=== PATIENT | female | born 2000 | race Two or more races ===

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

== ENCOUNTER 2018-03-19 22:05 | Emergency (ER) | payer SELFPAY ==
[2018-03-19 22:12] VITALS: BP 112/64
--- NOTE | 2018-03-19 22:56 | ER Document Report ---
ED General - General Chief Complaint: Vag Bleeding, +preg <12wks Stated Complaint: VAGINAL BLEEDING Time Seen by Provider: 03/19/18 22:53 TRAVEL OUTSIDE OF THE [place] IN LAST 30 DAYS: No - HPI Notes: Patient is a 17-year-old female approximately 6 weeks with no other significant past medical history who presents to the ED complaining of intermittent pelvic cramping, vaginal bleeding that began last evening. Patient states that she is eating and drinking without any difficulties. She is urinating normally and having normal bowel movements. Denies any drug allergies, smoking, IV drug use, alcohol involvement. No other concerns or complaints at this time. The pain does not radiate. Denies any headache, fever , neck pain, URI, sore throat, chest pain, palpitations, syncope, cough, shortness of breath, wheeze, dyspnea, nausea/vomiting/diarrhea, urinary retention, dysuria, hematuria, or rash. - Related Data Allergies/Adverse Reactions: No Known Allergies Allergy (Unverified 08/30/16 12:58) Past Medical History - Social History Smoking Status: Never Smoker Family History: None, Reviewed & Not Pertinent Renal/ Medical History: Denies: Hx Peritoneal Dialysis - Immunizations Hx Diphtheria, Pertussis, Tetanus Vaccination: Yes Review of Systems - Review of Systems -: Yes All other systems reviewed and negative Physical Exam - Vital signs Vitals: Temp Pulse Resp BP Pulse Ox 98.3 F 71 16 112/64 100 03/19/18 22:11 03/19/18 22:11 03/19/18 22:11 03/19/18 22:11 03/19/18 22:11 - Notes Notes: PHYSICAL EXAMINATION: GENERAL: Well-appearing, well-nourished and in no acute distress. LUNGS: Breath sounds clear to auscultation bilaterally and equal. No wheezes rales or rhonchi. HEART: Regular rate and rhythm without murmurs, rubs, gallops. ABDOMEN: Soft, nondistended abdomen. No guarding, no rebound. No masses appreciated. Normal bowel sounds present. No CVA tenderness bilaterally. + mild lower pelvic tenderness b/l. : deferred, pt declined Musculoskeletal: FROM to passive/active. Strength 5+/5. Extremities: No cyanosis, clubbing, or edema b/l. Peripheral pulses 2+. Capillary refill less than 3 seconds. NEUROLOGICAL: Normal speech, normal gait. PSYCH: Normal mood, normal affect. SKIN: Warm, Dry, normal turgor, no rashes or lesions noted. Course - Re-evaluation Re-evalutation: 03/20/18 01:53 Patient is an afebrile, well-hydrated, 17-year-old female who presents to the ED with bleeding in early and intrauterine . Vitals are acceptable without any significant tachycardia, tachypnea, or hypoxia. PE is otherwise unremarkable. CBC, CMP, lipase, rhogam (A+) unremarkable for acute pathology. HCG at 37,800. TVUS shows evidence of the gest sac w/o sac measuring approx 6wk 3 day. + suspected subchorionic hemorrhage noted. UA unremarkable aside from blood. Patient is nontoxic-appearing is tolerating p.o. without any difficulties. No other labs or imaging warranted at this time based on H&P. Low suspicion/risk for acute appendicitis, bowel obstruction, acute cholecystitis, acute cholangitis, perforated diverticulitis, incarcerated hernia, pancreatitis, perforated ulcer, peritonitis, sepsis, pelvic inflammatory disease, ectopic , tubo-ovarian abscess, ovarian torsion, or other systemic emergent condition at this time. Patient is aware that her condition can change from initial presentation and she needs to monitor symptoms closely and seek medical attention if any acute changes. Recheck HCG in 2-3 days, may need repeat US next week as well. Conservative measures otherwise for symptoms. Recheck with your PCM/OBGYN in 2-3 days. Return to the ED with any worsening/concerning symptoms otherwise as reviewed in discharge. Patient is in agreement. - Vital Signs Vital signs: Temp Pulse Resp BP Pulse Ox 98.3 F 71 16 112/64 100 03/19/18 22:11 03/19/18 22:11 03/19/18 22:11 03/19/18 22:11 03/19/18 22:11 - Laboratory Result Diagrams: 03/19/18 23:45 03/19/18 23:45 Laboratory results interpreted by me: 03/19/18 03/19/18 03/19/18 23:45 23:45 23:47 Monocytes % 14.9 H Carbon Dioxide 21 L BUN 3 L Creatinine 0.44 L Alkaline Phosphatase 46 L Beta HCG, Quant 02310.00 H Urine Ketones 20 H Urine Blood MODERATE H Urine Urobilinogen 2.0 H Ur Leukocyte Esterase TRACE H Discharge - Discharge Clinical Impression: Bleeding in early Subchorionic bleed Qualifiers: Fetus number: single or unspecified fetus Trimester: first trimester Qualified Code(s): O41.8X10 - Other specified disorders of amniotic fluid and membranes, first trimester, not applicable or unspecified; O46.8X1 - Other antepartum hemorrhage, first trimester; O46.8X1 - Other antepartum hemorrhage, first trimester Condition: Stable Disposition: HOME, SELF-CARE Instructions: Bleeding During Early ([facility]) Additional Instructions: Maintain fluid intake Proper hygenic technique Keep the skin clean Tylenol as needed Return immediately if symptoms worsen F/u with your PCM/OBGYN in 2-3 days for a recheck Return to the ED with any development of [place]/fever, trouble with vision, eye redness, worsening pain, urethral discharge, urinary retention, blood in the urine, flank pain, abdominal pain, n/v, Chest Pain, shortness of breath, joint pains, trouble breathing, or any other worsening/concerning symptoms as needed otherwise. Prescriptions: Ondansetron [Zofran Odt 4 mg Tablet] 1 - 2 tab PO Q4H PRN #15 tab.rapdis PRN Reason: For Nausea/Vomiting Referrals: [facility] [Provider Group] - 03/22/18
[2018-03-19] MEDS ORDERED: ACETAMINOPHEN 325 MG TABLET PO ONE (22:58)
[2018-03-19 23:59] LABS: ABSOLUTE BASOPHILS # (AUTO) 0.1 10^3/uL (0.0-0.2); ABSOLUTE EOSINOPHILS # (AUTO) 0.1 10^3/uL (0.0-0.6); ABSOLUTE LYMPHOCYTES (AUTO) 1.9 10^3/uL (0.5-4.7); ABSOLUTE MONOCYTES (AUTO) 0.7 10^3/uL (0.1-1.4); BASOPHILS % (AUTO) 1.1 % (0-2); EOSINOPHILS % (AUTO) 2.9 % (0-6); HEMATOCRIT 39.9 % (36.0-47.0); HEMOGLOBIN 13.2 g/dL (12.0-15.5); LYMPHOCYTES % (AUTO) 38.9 % (13-45); MEAN CORPUSCULAR HEMOGLOBIN 29.8 pg (27.0-33.4); MEAN CORPUSCULAR HGB CONC 33.1 g/dL (32.0-36.0); MEAN CORPUSCULAR VOLUME 90 fl (80-97); MONOCYTES % (AUTO) 14.9 % (3-13); PLATELET COUNT 247 10^3/uL (150-450); RED BLOOD COUNT 4.44 10^6/uL (3.72-5.28); RED CELL DISTRIBUTION WIDTH 12.9 % (11.5-14.0); SEGMENTED NEUTROPHILS % (AUTO) 42.2 % (42-78); TOTAL CELLS COUNTED % (AUTO) 100 %; WHITE BLOOD COUNT 4.8 10^3/uL (4.0-10.5)
[2018-03-20 00:20] LABS: ALANINE AMINOTRANSFERASE 27 U/L (5-35); ALBUMIN 4.2 g/dL (3.7-5.6); ALKALINE PHOSPHATASE 46 U/L (50-135); ANION GAP 12 (5-19); ASPARTATE AMINO TRANSFERASE 17 U/L (5-30); BILIRUBIN,DIRECT 0.2 mg/dL (0.0-0.4); BILIRUBIN,TOTAL 0.7 mg/dL (0.2-1.3); BLOOD UREA NITROGEN 3 mg/dL (7-20); CALCIUM 9.7 mg/dL (8.4-10.2); CARBON DIOXIDE 21 mmol/L (22-30); CHLORIDE 105 mmol/L (98-107); GLUCOSE 92 mg/dL (75-110); POTASSIUM 4.1 mmol/L (3.6-5.0); SODIUM 137.6 mmol/L (137-145)
[2018-03-20 00:25] LABS: APPEARANCE,URINE SLIGHTLY-CLOUDY; BILIRUBIN,URINE NEGATIVE (NEGATIVE); COLOR,URINE YELLOW; GLUCOSE, URINE NEGATIVE (NEGATIVE); KETONES,URINE 20 mg/dL (NEGATIVE); LEUKOCYTE ESTERASE,URINE TRACE (NEGATIVE); NITRITE,URINE NEGATIVE (NEGATIVE); PROTEIN,URINE NEGATIVE (NEGATIVE); URINE SPECIFIC GRAVITY 1.016
--- NOTE | 2018-03-20 01:48 | RADIOLOGY REPORT (SQ) ---
EXAM DESCRIPTION: US TRANSVAGINAL COMPLETED DATE/TME: 03/19/2018 22:42 CLINICAL HISTORY: 17 years, Female, , bleeding LMP: 02/01/2018 COMPARISON: None. TECHNIQUE: Complete first trimester obstetrical ultrasound with transvaginal imaging. FINDINGS: The cervix measures 2.4 cm and is closed. The uterus measures 8.7 x 4.9 x 4.5 cm. Within the endometrial canal there is a gestational sac. Yolk sac is identified. A pole is identified with a crown-rump length of 0.61 cm compatible with an estimated gestational age of 6 weeks, 3 days. heart rate of 113 bpm. The gestational sac has a qualitatively normal configuration. Anterior to the gestational sac there is a hypoechoic region measuring 5.1 x 2.0 x 3.4 cm likely representing a subchorionic hemorrhage. The right ovary measures 1.9 x 3.8 x 2.3 cm. Likely right ovarian corpus luteal cyst measuring 1.8 cm. This is almost certainly benign and no imaging follow-up required. The left ovary measures 2.0 x 3.4 x 1.5 cm. Limited color and spectral Doppler imaging images flow within the ovaries bilaterally. No large adnexal masses. No free pelvic fluid. IMPRESSION: 1. Single live intrauterine with estimated gestational age of 6 weeks, 3 days. Heart rate of 113 bpm. 2. There is a 5.1 x 2.0 cm hypoechoic structure anterior to the gestational sac likely representing a subchorionic hemorrhage. Close continued follow-up recommended. 2010 [employer]- All Rights Reserved
== END 2018-03-20 02:16 | disposition home or self-care (01) ==
LOC: ER 22:05
DX: O41.8X10 Other specified disorders of amniotic fluid and membranes, first trimester, not applicable or unspecified (principal); Z3A.01 Less than 8 weeks gestation of pregnancy
CPT/HCPCS: 36415; 76817; 80053; 81001; 84702; 85025; 86900; 86901; 87086; 93976; 99284